=== PATIENT | female | born 1980 | race Caucasian/White ===

== ENCOUNTER 2017-01-08 21:02 | Emergency (ER) | payer MEDICAID, OTHER ==
[~2017-01-08] VITALS: Ht 162.6 cm; Wt 53.0 kg
[~2017-01-08 21:02] MED LIST: PERC5TAB12 PO
[2017-01-08 21:03] VITALS: BP 136/90; PULSE 68; RESP 16; TEMP 98.1; O2SAT 100
[2017-01-08] MEDS ORDERED: FAMO1TAB37 PO (22:15)
[2017-01-08] MEDS ORDERED: predniSONE 20 MG TAB PO ONE (22:15)
[2017-01-08] MEDS ORDERED: FAMOTIDINE 20 MG TAB PO ONE (22:15)
[2017-01-08] MEDS ORDERED: PRED-503 PO (22:15)
[2017-01-08] MEDS ORDERED: diphenhydrAMINE HCL 50 MG/ML VIAL IM ONE (22:15)
--- NOTE | 2017-01-08 22:20 | PD ---
HPI Chief Complaint: Skin Problem Time Seen by Provider: 22:16 Travel History International Travel<30 days: No Contact w/Intl Traveler<30days: No Traveled to known affect area: No History of Present Illness HPI 36-year-old female presents to emergency department with a 2 day history of hives. She states that she is unsure of the etiology. She can only recall changing her cooking oil. She states that the hives appear to be more on her face and flexor creases of her extremities. She denies any recent illness. No shortness of breath, wheezing, glossal edema or difficulty swallowing. Mild pruritus. PFSH Past Medical History Narrative Medical Kidney stones, right ureter obstruction Diminished Hearing: No Kidney Stones: Yes (WITH STENT PLACEMENT) Immunizations Current: Yes Tetanus Vaccination: < 5 Years ?: Not LMP: 12/22/16 : 3 Para: 3 Miscarriage: 0 : 0 Past Surgical History Narrative Surgical Right ureter repair Genitourinary Surgery: Yes (STENT PLACED IN RIGHT URETER) Pacemaker: No Other Surgery: Yes (RENAL STENT) Social History Alcohol Use: No Tobacco Use: No Substance Use: No Allergies-Medications (Allergen,Severity, Reaction): Coded Allergies: Kiwi (Verified Allergy, Mild, THROAT SWELL, 01/08/17) Reported Meds & Prescriptions Reported Meds & Active Scripts Active Pepcid (Famotidine) 20 Mg Tab 20 Mg PO BID Deltasone (Prednisone) 20 Mg Tab 20 Mg PO BID Percocet 5-325 mg (Oxycodone/Acetaminophen) Oxycodone 5/325 Acetaminophen Tab 1- 2 Tab PO Q6H PRN Review of Systems Except as stated in HPI: all other systems reviewed are Neg Physical Exam Narrative GENERAL: Well-developed, well-nourished in no acute distress. Nontoxic appearing. HEAD: Normocephalic, atraumatic. EYES: Pupils equal round and reactive. Extraocular motions intact. No scleral icterus. No injection or drainage. ENT: TMs clear without erythema. The external auditory canals clear. Nose: clear . Posterior pharynx is pink and moist. No tonsillar edema or exudate. Uvula midline. Airway patent. NECK: Trachea midline.Supple, nontender, moves head freely. No central bony tenderness or spasm. CARDIOVASCULAR: Regular rate and rhythm without murmurs, gallops, or rubs. RESPIRATORY: Clear to auscultation. Breath sounds equal bilaterally. No wheezes , rales, or rhonchi. GASTROINTESTINAL: Abdomen soft, non-tender, nondistended. No hepato-splenomegaly , or palpable masses. No guarding. EXTREMITIES: No clubbing, cyanosis, or edema. No joint tenderness, effusion, or edema noted. BACK: Nontender without deformity or crepitance. No flank tenderness. Skin: The patient has raised erythematous hives on the forehead and cheeks. She has a few scattered lesions on her trunk and extremities. Data Data Last Documented VS Vital Signs Date Time Temp Pulse Resp B/P Pulse Ox O2 Delivery O2 Flow Rate FiO2 01/08/17 21:03 98.1 68 16 136/90 100 Room Air Orders Diphenhydramine Inj (Benadryl Inj) (01/08/17 22:15) Prednisone (Deltasone) (01/08/17 22:15) Famotidine (Pepcid) (01/08/17 22:15) MDM Medical Decision Making Medical Screen Exam Complete: Yes Emergency Medical Condition: Yes Medical Record Reviewed: Yes Differential Diagnosis MDM: High Differential diagnoses: Abscess, folliculitis, cellulitis, contact dermatitis, allergic reaction Narrative Course Patient is having a mild allergic reaction. Etiology is unclear. Patient given prednisone 60 mg by mouth, Pepcid 20 mg by mouth, and Benadryl 50 mg IM. I see no serious systemic reaction. The patient's encouraged to perform a diary to determine the etiology of the rash. She is to follow-up with a primary care doctor on Thursday or return to the ER if symptoms worsen. Diagnosis Primary Impression: Allergic reaction Qualified Code: T78.40XA - Allergic reaction, initial encounter Patient Instructions: General Instructions Additional Instructions: Rest. Dove soap. 50 mg of Benadryl every 4-6 hours. Pepcid and prednisone. Return to the ER over the weekend if symptoms worsen. Follow-up with a primary care doctor on Thursday. Perform a diary of all exposures, foods and changes in her environment as discussed. Med/Other Pt SpecificInfo: Prescription(s) given Scripts Famotidine (Pepcid)20 Mg Tab20 Mg PO BID #10 TAB Ref 0 Prov:Ree Ojeda MD 01/08/17 Prednisone (Deltasone)20 Mg Tab20 Mg PO BID #10 TAB Prov:Ree Ojeda MD 01/08/17 Disposition: 01 DISCHARGE HOME Condition: Stable Pedrito Tucker Jan 08, 2017 22:20
== END 2017-01-08 23:41 | disposition home or self-care (01) ==
LOC: NEPB 21:02
DX: T78.40XA Allergy, unspecified, initial encounter (principal); X58.XXXA Exposure to other specified factors, initial encounter
CPT/HCPCS: 96372; 99283; J1200; J7512

== ENCOUNTER 2017-08-25 12:21 | Emergency (ER) | payer OTHER, MEDICAID ==
[~2017-08-25] VITALS: Ht 162.6 cm; Wt 55.0 kg
[~2017-08-25 12:21] MED LIST changes: +FAMO1TAB37 PO; +PRED-503 PO
[2017-08-25 12:22] VITALS: BP 133/88; PULSE 78; RESP 18; TEMP 99; O2SAT 98
[2017-08-25] MEDS ORDERED: IBUP-232 PO (12:46)
[2017-08-25] MEDS ORDERED: ROBA500T PO (12:46)
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
== END 2017-08-25 13:07 | disposition home or self-care (01) ==
LOC: NEPK 12:21
DX: S16.1XXA Strain of muscle, fascia and tendon at neck level, initial encounter (principal); M25.512 Pain in left shoulder; V49.59XA Passenger injured in collision with other motor vehicles in traffic accident, initial encounter
CPT/HCPCS: 99282